=== PATIENT | male | born 1945 | race Caucasian/White ===

== ENCOUNTER → 2017-02-16 | Outpatient (CLI) | payer MEDICARE ==
[~2017-02-16] MED LIST: APIX1TAB3 PO; ASPI81TA28 PO; ATEN-173 PO; ATOR-54 PO; BIOT1CAP8 PO; CALCCHW PO; CIPR1TAB10 PO; CLC100 PO; COEN1CAP17 PO; FLM4 PO; HYDR12.56 PO; HYT/2 PO; LISI40TA PO; MULT-506 PO; POTA99TA PO; PROP225T PO; TRAM-10 PO; VITA1TAB4 PO; VITACAP26 PO
[2017-02-16 13:41] LABS: BLOOD UREA NITROGEN 16 mg/dl (7-18); BUN/CREATININE RATIO 10.1 (10-20); CALCIUM 9.3 mg/dl (8.5-10.1); CARBON DIOXIDE 29 mmol/L (21-32); CHLORIDE 105 mmol/L (98-107); GLUCOSE 75 mg/dl (70-99); SODIUM 140 mmol/L (136-145)
[2017-02-16 14:09] LABS: BASO % 0.7 %; BASO ABS # 0.06 K/uL (0-0.2); COMPLETE YES; EOS % 4.5 %; HEMATOCRIT 45.7 % (42-52); IG% 0.3 %; LYMPH % 20.4 %; LYMPH ABS # 1.86 K/uL (1.2-3.4); MEAN CELL VOLUME 88.2 fL (80-100); MEAN CORPUSCULAR HEMOGLOBIN 30.3 pg (25-34); MEAN CORPUSCULAR HGB CONC 34.4 g/dl (32-36); MEAN PLATELET VOLUME 9.5 fL (7.4-10.4); MONO % 11.5 %; NEUT % 62.6 %; PLATELET COUNT 349 K/uL (130-400); RED BLOOD COUNT 5.18 M/uL (4.7-6.1); WHITE BLOOD COUNT 9.14 K/uL (4.8-10.8)
== END | disposition home or self-care (01) ==
LOC: C.CPL 11:52
PROVIDERS: ATTEND Surgery
DX: Z01.810 Encounter for preprocedural cardiovascular examination (principal); Z01.812 Encounter for preprocedural laboratory examination; J90 Pleural effusion, not elsewhere classified

== ENCOUNTER 2017-02-23 05:36 | Inpatient (IN) | payer MEDICARE, OTHER ==
[2017-02-18 08:59] VITALS: BMI 29.0
[~2017-02-23] VITALS: Ht 185.4 cm; Wt 102.3 kg
[2017-02-23] VITALS (8 sets, daily range): BP systolic 111–136; BP diastolic 65–99; PULSE 67–71; TEMP 36.4–36.9; O2SAT 94–99; Ht 185.4 cm; Wt 102.3 kg
[~2017-02-23 05:36] MED LIST changes: -CIPR1TAB10 PO; -CLC100 PO; -FLM4 PO; -TRAM-10 PO
[2017-02-23] MEDS ORDERED: SODIUM CHLORIDE 0.9% PF 50 ML VIAL ONE (06:53)
[2017-02-23] MEDS ORDERED: BUPIVACAINE LIPOSOME 1/3% 266 MG/20 ML VIAL INFIL ONE (06:53)
[2017-02-23] MEDS ORDERED: FENTANYL CITRATE INJ 50 MCG/1 ML 2 ML VIAL ONE (06:56)
[2017-02-23] MEDS ORDERED: PROPOFOL IV EMULSION 10 MG/ML 20 ML VIAL IV ONE (06:56)
[2017-02-23] MEDS ORDERED: DEXAMETHASONE SOD INJ 4 MG/ML VIAL ONE (06:56)
[2017-02-23] MEDS ORDERED: MIDAZOLAM HCL 1 MG/ML 2ML VIAL ONE (06:56)
[2017-02-23] MEDS ORDERED: GLYCOPYRROLATE INJ 0.2 MG/ML VIAL ONE (06:56)
[2017-02-23] MEDS ORDERED: LIDOCAINE HCL 2% 2 ML VIAL (20MG/ML) ONE (06:56)
[2017-02-23] MEDS ORDERED: ROCURONIUM BROMIDE 10 MG/ML 5 ML VIAL IV ONE (06:56)
[2017-02-23] MEDS ORDERED: NEOSTIGMINE METHYLSULFATE 5 MG/5 ML SYR ONE (06:56)
[2017-02-23] MEDS ORDERED: ONDANSETRON INJ 2 MG/ML 2 ML VIAL ONE ×2 (06:56→12:15)
[2017-02-23] MEDS ORDERED: HYDROmorphone INJ 2 MG/ML SYR/VIAL IV PRN (07:30)
[2017-02-23] MEDS ORDERED: ATROPINE SULFATE 0.1 MG/ML 5ML SYR IV PRN (07:30)
[2017-02-23] MEDS ORDERED: ONDANSETRON INJ 2 MG/ML 2 ML VIAL IV PRN (07:30)
[2017-02-23] MEDS ORDERED: LABETALOL HCL IV 5 MG/ML 20ML IV PRN (07:30)
[2017-02-23] MEDS ORDERED: KETOROLAC TROMETHAMINE 30 MG/ML VIAL IV. PRN (07:30)
[2017-02-23] MEDS ORDERED: PROMETHAZINE HCL INJ 12.5 MG in SODIUM CHLORIDE 0.9% 50ML 50 ML IV PRN (07:30)
--- NOTE | 2017-02-23 07:51 | History & Physical Bridge Note ---
H&P Re-Evaluation Bridge Note: I have examined the patient, reviewed the History & Physical and in the interval since the performance of the History & Physical I have noted the following changes of clinical significance: No changes noted
[2017-02-23] MEDS ORDERED: CEFAZOLIN SOD 1 GM VIAL ONE (08:47)
[2017-02-23] MEDS ORDERED: PHENYLEPHRINE 100MCG/ML 5ML SYR ONE (11:45)
[2017-02-23] MEDS ORDERED: EpHEDrine SULFATE 50MG/5ML SYR ONE (11:45)
[2017-02-23] MEDS ORDERED: NON-FORMULARY MEDICATION (Vitamins C & E (Vitamin C) 1 CAP) PO SCH (12:30)
[2017-02-23] MEDS ORDERED: MoRPHine SULFATE 2 MG/ML CARP IV PRN (12:30)
[2017-02-23] MEDS ORDERED: NON-FORMULARY MEDICATION (Potassium 99 MG) PO SCH (12:30)
[2017-02-23] MEDS ORDERED: OXYCODONE HCL IR 5 MG TAB (IMMEDIATE RELEASE) PO PRN (12:30)
--- NOTE | 2017-02-23 13:29 | Anesthesiology Progress Note ---
Anesthesia Post Op Note Date & Time Feb 23, 2017 at 13:29 Vital Signs Pain Intensity: 0 Vital Signs Past 12 Hours Date Time Temp Pulse Resp B/P (MAP) Pulse Ox O2 Delivery O2 Flow Rate FiO2 02/23/17 13:25 36.6 69 19 98/56 97 Nasal Cannula 2 02/23/17 13:15 69 19 95/57 95 Nasal Cannula 2 02/23/17 13:05 70 18 92/48 99 Oxymask 10 02/23/17 12:55 69 24 87/57 97 Oxymask 10 02/23/17 12:45 37.0 69 20 90/51 96 Oxymask 10 02/23/17 05:55 36.8 70 20 136/99 97 Room Air Notes Mental Status: alert / awake / arousable, participated in evaluation Pt Amnestic to Procedure: Yes Nausea / Vomiting: adequately controlled Pain: adequately controlled Airway Patency, RR, SpO2: stable & adequate BP & HR: stable & adequate Hydration State: stable & adequate Anesthetic Complications: no major complications apparent
--- NOTE | 2017-02-23 13:51 | DIAGNOSTIC IMAGING REPORT ---
SINGLE VIEW CHEST CLINICAL HISTORY: Postoperative examination. FINDINGS: An AP, portable, upright chest radiograph is compared to study dated 02/10/2017 and correlated with chest CT dated 11/09/2016. The examination is degraded by portable technique and patient rotation. A 2-lead cardiac pacemaker is unchanged in position and partially obscures the left apex. The heart is mildly enlarged. The pulmonary vasculature is noncongested. A chest tube terminates at the right apex. No definite pneumothorax is seen. Pleural fluid and consolidative change are seen at the right lung base. The volume of fluid appears decreased from previous. The left lung appears clear. Simultaneous gas is noted along the right chest wall. The skeletal structures are osteopenic. The bony thorax is grossly intact. Surgical clips are seen in the right upper quadrant. IMPRESSION: 1. A right-sided chest tube terminates at the apex. No definite pneumothorax is seen. 2. A right pleural effusion with right basilar consolidation persists. The volume of pleural fluid appears improved from previous. 3. The left lung appears clear.. Electronically signed by: Charlie Lott M.D. 02/23/2017 1:49 PM Dictated Date/Time: 02/23/2017 1:47 PM
[2017-02-23] MEDS: ONDANSETRON INJ 2 MG/ML 2 ML VIAL IV PRN ×2 (14:27→14:37)
--- NOTE | 2017-02-23 14:27 | OPERATIVE REPORT ---
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 POSTOPERATIVE DIAGNOSIS: Same. PROCEDURE: 1. Left thoracoscopy with extensive decortication of all 3 lobes. 2. Extensive pleurectomy. 3. Wedge resection biopsy of right lower lobe. SURGEON: Dr. Figueroa. ROAD WORKER: Alvaro Leary PA-C. ANESTHESIA: General anesthesia endotracheal intubation. INDICATION FOR PROCEDURE AND FINDINGS: This is a very nice 71-year-old male who suffered what appears to have been a pneumonic process back in August and developed pleural effusion. He underwent a tap and did not appear to be malignant, but it recurred quite quickly. He went for thoracoscopy and biopsy and appeared grossly to be a malignancy and in [facility], he simply had a chest tube placed after the biopsies including wedge resection of the right lower lobe. He did well with the surgery; however, his dyspnea persisted. I saw him back and he still had what appears to be a trapped lung with some fluid in his chest. I had a long discussion with the patient as well as his road worker, Dr. Alfredo Lea, from [facility]. I elected to proceed with a decortication. On 02/23/2017 the patient was electively admitted to [facility] and I performed an uncomplicated thoracoscopic extensive decortication and pleurectomy. I saw no evidence of malignancy grossly but I sent off a large amount of visceral peel as well as intrapleural contents and parietal pleura. We saw no evidence of pus. He did have an area of leaking from an area of the lateral basilar aspect of the lower lobe and I did a wedge resection of this both to control the air leak as well as to send off some lung for further histologic evaluation. The patient tolerated it well and was awakened without difficulty in the operating room. We did an intercostal nerve block with Exparel and he had very little pain upon waking. A very small air leak at the conclusion of the case. PROCEDURE: The patient brought to the operating room and laid in supine position. General anesthesia induced and endotracheal intubation was performed. The patient was then turned in the left lateral decubitus position, his right chest was prepped and draped in usual sterile fashion. Prophylactic antibiotics were given and appropriate timeout was called. I then made an incision about the mid axillary line pretty far down at about the eighth interspace. We insufflated CO2 and upon going in with the 5 mm scope, we could see that we were in the fluid cavity. I then switched this out to a 12 mm port after taking down some adhesions bluntly with a Kitner. I was then able to take down adhesions with blunt Kitner but posterior and anterior and placed 2 more 12 mm ports. Upon placing this I then suctioned out some fluid and sent it for cytology as well as Gram stain and culture. I then had some intrapleural contents sent for AFB and fungal smears and culture. There was not that much, probably less than 150 mL of fluid. After breaking of the loculations I then came down where the pleura was extremely thickened down near the costophrenic angle. I identified the diaphragm and then I was able to pull the lower lobe off and get up under this. I then meticulously took down adhesions from the costophrenic angle and the lateral chest wall and cleaned them up all the way back to the vertebral bodies. I actually removed some of the plaque from the pleura and I was then able to free up all adhesions from the upper lobe, middle lobe and lower lobe, not only from the chest wall but also from the intralobar adhesions. This helped gain foothold and I was able to completely decorticate the upper lobe without difficulty by grasping the thin peel and I was able to bluntly remove this until it was completely freed. I then was able to do the same thing for the lower lobe and the middle lobe, although the lower lobe was quite involved with the process in the costophrenic angle laterally. I ended up excising this with an Endo-ELVIA stapler. This was delivered off the field and sent to pathology. We had really very little bleeding in this. After this, I then removed this very thick plaque and I did a complete pleurectomy. There was not much along the mediastinum or apically, but I brought it down all the way down to the costophrenic angle and removed a very thick large amount of parietal pleura. After this I was surprised we got very little in the way of bleeding; however I did use the Aquamantys to control the bleeding that came and we removed these pleural plaques. All this was sent to pathology. I then used 266 mg of Exparel and 60 mL of normal saline to perform an intercostal block from the 2nd to the 11th rib. This was done intrathoracically under thoracoscopic guidance. I then inflated the lung and really saw very little in the way of any air leak. A 24-Vietnamese chest tube was placed in the anterior thoracostomy port directed towards the apex held in place with heavy silk suture. I also made a small incision about 2 cm from the chest tube site posteriorly and placed the PleurX catheter tunneling it and then dropping it into the pleural cavity and placing along the diaphragmatic gutter and posteriorly. 0 Vicryl was used to close the muscle layers of the other 2 ports and 4-0 Monocryl was used to close all skin incisions. The patient was extubated in the room with negligible blood loss. He tolerated it very well. I attest to the content of the Intraoperative Record and any orders documented therein. Any exception s are noted below.
[2017-02-23] MEDS: CEFAZOLIN IV 2,000 MG in DEXTROSE 5% 50ML 100 ML IV SCH ×2 (16:35→23:40)
[2017-02-23 17:03] LABS: INR 1.1 (0.9-1.1); PARTIAL THROMBOPLASTIN RATIO 0.9; PROTHROMBIN TIME (PATIENT) 11.8 SECONDS (9.0-12.0)
[2017-02-23] MEDS: D5W AND 1/2NSS 1,000 ML IV SCH ×2 (17:55→23:36)
[2017-02-23] MEDS: METOCLOPRAMIDE HCL INJ 5 MG/ML 2 ML VIAL IV. SCH ×2 (17:56→21:38)
[2017-02-23] MEDS: ACETAMINOPHEN IV 1,000 MG in EMPTY BAG 0 ML IV SCH ×2 (17:57→23:37)
[2017-02-23] MEDS ORDERED: LISINOPRIL 40 MG TAB PO SCH (21:00)
[2017-02-23] MEDS ORDERED: PROPAFENONE HCL 225 MG PO SCH (21:00)
[2017-02-23] MEDS: DOCUSATE SODIUM 100 MG CAP PO SCH (21:30)
[2017-02-23] MEDS: ATORVASTATIN 20 MG TAB PO SCH (21:30)
[2017-02-24] VITALS (13 sets, daily range): BP systolic 95–133; BP diastolic 56–86; PULSE 69–94; TEMP 36.5–37.4; O2SAT 94–97
[2017-02-24] MEDS: METOCLOPRAMIDE HCL INJ 5 MG/ML 2 ML VIAL IV. SCH (05:41)
[2017-02-24] MEDS ORDERED: LACTATED RINGER'S 1000ML 1,000 ML IV SCH (06:00)
[2017-02-24 06:20] LABS: BASO % 0.1 %; BASO ABS # 0.01 K/uL (0-0.2); COMPLETE YES; EOS % 0.1 %; HEMATOCRIT 39.9 % (42-52); IG% 0.4 %; LYMPH % 5.9 %; MEAN CELL VOLUME 87.9 fL (80-100); MEAN CORPUSCULAR HGB CONC 34.1 g/dl (32-36); MEAN PLATELET VOLUME 9.4 fL (7.4-10.4); MONO % 8.9 %; NEUT % 84.6 %; PLATELET COUNT 304 K/uL (130-400); RED BLOOD COUNT 4.54 M/uL (4.7-6.1); WHITE BLOOD COUNT 15.36 K/uL (4.8-10.8)
[2017-02-24 06:55] LABS: BUN/CREATININE RATIO 13.7 (10-20); CALCIUM 8.5 mg/dl (8.5-10.1); CREATININE 2.1 mg/dl (0.60-1.40); POTASSIUM 4.5 mmol/L (3.5-5.1)
--- NOTE | 2017-02-24 07:16 | DIAGNOSTIC IMAGING REPORT ---
CHEST ONE VIEW PORTABLE HISTORY: Postop. decortication COMPARISON: Chest 02/23/2017. FINDINGS: Tiny right apical pneumothorax with a pleural gap of 5 mm. Right chest tube is unchanged in position. Small amount of subcutaneous emphysema within the right chest. Right basilar densities have slightly improved. The left lung is clear. The heart remains mildly enlarged. Left-sided dual-chamber pacemaker. IMPRESSION: Tiny right apical pneumothorax. The right chest tube is unchanged in position. Improved aeration at the right lung base. Electronically signed by: Epi Lujan M.D. 02/24/2017 7:15 AM Dictated Date/Time: 02/24/2017 7:14 AM
[2017-02-24] MEDS: ACETAMINOPHEN 325 MG TAB PO SCH ×3 (08:19→19:34)
[2017-02-24] MEDS: TAMSULOSIN HCL 0.4 MG CAP PO SCH (08:19)
[2017-02-24] MEDS: DOCUSATE SODIUM 100 MG CAP PO SCH ×2 (08:19→20:56)
[2017-02-24] MEDS: ENOXAPARIN 30 MG/0.3 ML SYR SQ SCH (08:20)
--- NOTE | 2017-02-24 08:28 | Anesthesiology Progress Note ---
Anesthesia Post Op Note Date & Time Feb 24, 2017 at 08:27 Vital Signs Pain Intensity: 4.0 Vital Signs Past 12 Hours Date Time Temp Pulse Resp B/P (MAP) Pulse Ox O2 Delivery O2 Flow Rate FiO2 02/24/17 08:22 76 112/86 (95) 02/24/17 07:26 36.8 69 20 95/59 (71) 96 Room Air 02/24/17 07:05 Room Air 02/24/17 06:08 36.8 94 18 133/70 (91) 94 Room Air 02/24/17 05:15 94 Room Air 02/24/17 05:00 95 Room Air 02/24/17 02:10 36.6 69 18 102/64 (77) 95 Room Air 02/24/17 00:17 36.8 69 18 102/59 (73) 96 Room Air 02/23/17 23:45 Room Air Notes Mental Status: alert / awake / arousable, participated in evaluation Pt Amnestic to Procedure: Yes Nausea / Vomiting: adequately controlled Pain: adequately controlled Airway Patency, RR, SpO2: stable & adequate BP & HR: stable & adequate Hydration State: stable & adequate Anesthetic Complications: no major complications apparent
--- NOTE | 2017-02-24 08:54 | SURGERY PROGRESS NOTE ---
DATE: 02/24/2017 DATE: 02/24/2017 Mr. Camacho is seen 1 day status post extensive decortication and pleurectomy thoracoscopically. He looks superb. He has a very tiny air leak which is intermittent. His x-ray looks great. He sounds good on physical exam. I am going to keep his chest tube in 1 more day and send him home tomorrow. My only real issue with Mr. Camacho is the fact that he has gone into urinary retention. He had over 600 mL on his bladder scan, so Maxwell catheter was inserted. We had started Flomax on him and discontinued the catheter this morning. He has had problems with this in the past. I am going to go ahead and plan on removing his tube and sending him home tomorrow.
[2017-02-24] MEDS: SODIUM CHLORIDE 0.9% 1000ML 1,000 ML IV SCH ×2 (08:56→18:41)
[2017-02-24] MEDS ORDERED: NON-FORMULARY MEDICATION (Biotin 1 MG) PO SCH (09:00)
[2017-02-24] MEDS ORDERED: NON-FORMULARY MEDICATION (Coenzyme Q10 (Ubidecarenone) (Co Q 10) 100 MG) PO SCH (09:00)
[2017-02-24] MEDS: PROPAFENONE 225 MG PO SCH ×2 (11:29→20:55)
[2017-02-24] MEDS: TOCOPHERYL, DL-ALPHA 400 INTER.UNIT CAP PO SCH (11:30)
[2017-02-24] MEDS: CALCIUM 600MG + VIT D 400 IU TAB PO SCH (11:30)
[2017-02-24] MEDS: ASPIRIN 81 MG ECTAB PO SCH (11:30)
[2017-02-24] MEDS: MULTIVITAMIN TAB PO SCH (12:42)
[2017-02-24] MEDS ORDERED: NURSING VERBAL MED ORDER ONE (21:15)
[2017-02-24] MEDS ORDERED: CIPROFLOXACIN 250 MG TAB PO ONE (21:45)
[2017-02-24] MEDS: ATORVASTATIN 20 MG TAB PO SCH (21:59)
[2017-02-25] MEDS: ACETAMINOPHEN 325 MG TAB PO SCH ×2 (01:05→07:36)
[2017-02-25] MEDS: SODIUM CHLORIDE 0.9% 1000ML 1,000 ML IV SCH (04:09)
[2017-02-25 05:56] VITALS: O2SAT 93
[2017-02-25 06:09] VITALS: O2SAT 93
[2017-02-25 06:34] LABS: BUN/CREATININE RATIO 18.7 (10-20); CALCIUM 8.1 mg/dl (8.5-10.1); POTASSIUM 4.5 mmol/L (3.5-5.1)
--- NOTE | 2017-02-25 07:02 | DIAGNOSTIC IMAGING REPORT ---
CHEST ONE VIEW PORTABLE CLINICAL HISTORY: decortication COMPARISON STUDY: 02/24/2017 FINDINGS: Stable postoperative changes right hemithorax. Trace right apical pneumothorax with a maximum pleural separation currently of 3 mm. Parenchymal infiltrative changes right base presumably on a postoperative basis. Trace subcutaneous emphysema is stable. Left lung remains clear. IMPRESSION: Mildly improving postoperative changes right hemithorax. Trace residual right apical pneumothorax with a maximum pleural separation of 3 mm. The above report was generated using voice recognition software. It may contain grammatical, syntax or spelling errors. Electronically signed by: Saqib Maxwell M.D. 02/25/2017 7:01 AM Dictated Date/Time: 02/25/2017 7:00 AM
[2017-02-25 07:21] VITALS: BP 123/70; PULSE 69; TEMP 37.3; O2SAT 94
[2017-02-25] MEDS ORDERED: TRAM-10 PO (08:07)
--- NOTE | 2017-02-25 08:27 | DIAGNOSTIC IMAGING REPORT ---
SINGLE VIEW CHEST CLINICAL HISTORY: Status post chest tube removal. FINDINGS: An AP, portable, upright chest radiograph is compared to study performed earlier the same day 02/25/[address] dated 11/09/2016. The examination is degraded by portable technique and patient rotation. A 2-lead cardiac pacemaker is unchanged in position and partially obscures the left apex. The heart is mildly enlarged. The pulmonary vasculature is noncongested. The right-sided chest tube has been removed. No definite pneumothorax is seen. Pleural fluid and consolidative change are again seen at the right lung base. The left lung appears clear. Subcutaneous gas is noted along the right chest wall. The skeletal structures are osteopenic. The bony thorax is grossly intact. IMPRESSION: 1. A right-sided chest tube has been removed. No definite pneumothorax is seen. 2. A right pleural effusion with right basilar consolidation persists. 3. The left lung appears clear. Electronically signed by: Charlie Lott M.D. 02/25/2017 8:26 AM Dictated Date/Time: 02/25/2017 8:24 AM
[2017-02-25] MEDS ORDERED: CLC100 PO (08:35)
[2017-02-25] MEDS ORDERED: CIPR1TAB10 PO (08:35)
[2017-02-25] MEDS ORDERED: FLM4 PO (08:35)
[2017-02-25] MEDS: TAMSULOSIN HCL 0.4 MG CAP PO SCH (08:37)
[2017-02-25] MEDS: ENOXAPARIN 30 MG/0.3 ML SYR SQ SCH (08:38)
[2017-02-25] MEDS: PROPAFENONE 225 MG PO SCH (08:38)
--- NOTE | 2017-02-25 08:38 | Discharge Instructions ---
Discharge Instructions Date of Service Feb 25, 2017. Admission Reason for Admission: Pleural Effusion Discharge Discharge Diagnosis / Problem: Pleural Effusion Discharge Goals Goal(s): Decrease discomfort, Improve function, Learn about illness Activity Recommendations Activity Limitations: as noted below Lifting Limitations: none 1. You may remove dressing in 3 days and shower thereafter. No tub baths. 2. Do not fly or SCUBA dive until cleared to do so by Dr. Figueroa. 3. DO not drive if taking ultram. . Instructions / Follow-Up Instructions / Follow-Up 1. Office appointment with Dr. Figueroa in 1 week. Office will call you with date and time of appointment. Go to hospital 1 hour before appointment to get a chest x-ray taken. 2. See your family physician within 1 month to discuss if you should continue to take flomax. Current Hospital Diet Patient's current hospital diet: Regular Diet Discharge Diet Recommended Diet: Regular Diet Procedures Procedures Performed: Right Video Assisted Thoracoscopy with Decortication Pending Studies Studies pending at discharge: no Medical Emergencies . Who to Call and When: Medical Emergencies: If at any time you feel your situation is an emergency, please call 911 immediately. . Non-Emergent Contact Non-Emergency issues call your: Surgeon Call Non-Emergent contact if: you have a fever, your pain is not controlled, wound has increased drainage . "Provider Documentation" section prepared by Yusef Leary. . VTE Core Measure Inpt VTE Proph given/why not?: Enoxaparin (Lovenox)SQ
[2017-02-25] MEDS: DOCUSATE SODIUM 100 MG CAP PO SCH (08:42)
[2017-02-25] MEDS ORDERED: CIPROFLOXACIN 250 MG TAB PO SCH (09:00)
--- NOTE | 2017-02-25 09:05 | DISCHARGE SUMMARY ---
DATE OF DISCHARGE: 02/25/2017 DISCHARGE DIAGNOSES: 1. Chronic right pleural effusion with trapped right lung. 2. Probable parapneumonic effusion. 3. Urinary retention. HOSPITAL COURSE: This is a very nice 71-year-old male who is very active however became ill with what appears to be a pneumonia back in August and was treated with antibiotics but was still feeling very poorly and was found to have a pleural effusion. He underwent a thoracentesis and he initially felt better, but this quickly reaccumulated. He then underwent a thoracoscopy in November and it appeared malignant to the surgeon so biopsies were done, fluid drained and a chest tube placed. Unfortunately, he had a trapped lung and when the chest tube was removed the fluid reaccumulated. All his biopsies were benign including wedge biopsy. The patient was referred up here from [place] and I evaluated him and felt he would be a candidate for thoracoscopy. On 02/23/2017 the patient was brought to the operating room and underwent an uncomplicated thoracoscopic complete decortication of the right upper, right middle and right lower lobe. Also, did a small wedge resection of an area which had a lung tear and was a bit hardened. I also did an extensive pleurectomy as his pleura was very thick. The patient had very little in the way of blood loss and did quite well with this operation. He had a very tiny air leak the day after surgery. He developed urinary retention, put a Maxwell in but then removed it. Started him on Flomax. He was voiding nicely 24 hours prior to discharge. He also complained of burning with urination and gets frequent UTIs so we started him on Cipro. His pain was minimal, but we gave him some tramadol to go home with. His x-ray looked very good after I removed his chest tube. His pathology is not back yet however none of this appeared to be malignant. I did send off a large amount of tissue and fluid for evaluation. I will see the patient back next week with a chest x-ray.
[2017-02-25 09:36] VITALS: BP 123/70; PULSE 69; TEMP 37.3; O2SAT 94
[2017-02-25] MEDS: MULTIVITAMIN TAB PO SCH (10:54)
[2017-02-25] MEDS: TOCOPHERYL, DL-ALPHA 400 INTER.UNIT CAP PO SCH (10:55)
[2017-02-25] MEDS: CALCIUM 600MG + VIT D 400 IU TAB PO SCH (10:55)
[2017-02-25] MEDS: ASPIRIN 81 MG ECTAB PO SCH (10:55)
== END 2017-02-25 13:23 | disposition home health service (06) | DRG 164 ==
LOC: C.ACU 05:36 → C.MSW 12:36 → ENRESERV 13:21
PROVIDERS: ADMIT Surgery; ATTEND Surgery
PROC: 0BBF4ZZ Excision of Right Lower Lung Lobe, Percutaneous Endoscopic Approach (ICD-10-PCS; principal; 2017-02-23 07:30)
PROC: 0BDN4ZZ Extraction of Right Pleura, Percutaneous Endoscopic Approach (ICD-10-PCS; principal; 2017-02-23 07:30)
PROC: 0BBN4ZZ Excision of Right Pleura, Percutaneous Endoscopic Approach (ICD-10-PCS; principal; 2017-02-23 07:30)
DX: J90 Pleural effusion, not elsewhere classified (principal); J95.812 Postprocedural air leak; Y83.8 Other surgical procedures as the cause of abnormal reaction of the patient, or of later complication, without mention of misadventure at the time of the procedure; Y92.234 Operating room of hospital as the place of occurrence of the external cause; J98.4 Other disorders of lung; R33.9 Retention of urine, unspecified; I48.91 Unspecified atrial fibrillation; I12.9 Hypertensive chronic kidney disease with stage 1 through stage 4 chronic kidney disease, or unspecified chronic kidney disease; N18.2 Chronic kidney disease, stage 2 (mild); I25.10 Atherosclerotic heart disease of native coronary artery without angina pectoris; E78.5 Hyperlipidemia, unspecified; M19.90 Unspecified osteoarthritis, unspecified site; G47.30 Sleep apnea, unspecified; Z95.0 Presence of cardiac pacemaker; Z87.891 Personal history of nicotine dependence; Z79.01 Long term (current) use of anticoagulants; Z79.82 Long term (current) use of aspirin; Z79.899 Other long term (current) drug therapy

== ENCOUNTER → 2017-03-04 | Outpatient (CLI) | payer MEDICARE ==
[~2017-03-04] MED LIST changes: +CLC100 PO; +FLM4 PO; +TRAM-10 PO
--- NOTE | 2017-03-04 11:40 | DIAGNOSTIC IMAGING REPORT ---
CHEST 2 VIEWS ROUTINE CLINICAL HISTORY: 71 years-old Male presenting with pleural effusion, surgery on February 23, trouble breathing. TECHNIQUE: PA and lateral views of the chest were obtained. COMPARISON: 02/25/2017. FINDINGS: Left-sided pacer with leads to the right atrium and right ventricular apex. Cardiac silhouette top normal in size. Persistent moderate right pleural effusion and associated right basilar opacity. Left lung and pleural space clear. Osseous structures normal. Upper abdomen normal. IMPRESSION: 1. Persistent moderate right pleural effusion and right basilar opacity. Underlying infection cannot be excluded. Electronically signed by: Shekhar Cochran M.D. 03/04/2017 11:39 AM Dictated Date/Time: 03/04/2017 11:36 AM
== END | disposition home or self-care (01) ==
LOC: C.RAD 10:45
PROVIDERS: ATTEND Surgery
DX: J90 Pleural effusion, not elsewhere classified (principal); R06.00 Dyspnea, unspecified

== ENCOUNTER → 2017-04-19 | Outpatient (CLI) | payer MEDICARE ==
--- NOTE | 2017-04-19 10:13 | DIAGNOSTIC IMAGING REPORT ---
CHEST 2 VIEWS ROUTINE CLINICAL HISTORY: J90 Pleural [id number] COMPARISON STUDY: 03/04/2017 FINDINGS: The cardiac and mediastinal contours remain stable. There is a left subclavian bipolar central venous pacemaker present. There is a small right pleural effusion similar to the prior study. There is no failure.[ Slightly prominent right basal markings likely representing compressive atelectasis. IMPRESSION: Persistent small right pleural effusion with associated minor right basilar atelectatic changes Electronically signed by: Mohit Spann M.D. 04/19/2017 10:12 AM Dictated Date/Time: 04/19/2017 10:10 AM
== END | disposition home or self-care (01) ==
LOC: C.RAD 09:45
PROVIDERS: ATTEND Surgery
DX: J90 Pleural effusion, not elsewhere classified (principal)